=== PATIENT | male | born 1970 | race Caucasian/White ===

== ENCOUNTER → 2019-09-14 | Outpatient (CLI) | payer BC ==
--- NOTE | 2019-09-14 10:00 | ECHOF ---
Referral Reason:R06.00 Dyspnea, unspecified MEASUREMENTS -------- HEIGHT: 172.7 cm WEIGHT: 97.5 kg BP: RVIDd: 3.9 cm (< 3.3) IVSd: 1.7 cm (0.6 - 1.1) LVIDd: 4.0 cm (3.9 - 5.3) LVPWd: 1.7 cm (0.6 - 1.1) IVSs: 2.5 cm LVIDs: 2.4 cm LVPWs: 2.3 cm LAESV Index (A-L): 26.40 ml/m Ao Diam: 3.4 cm (2.0 - 3.7) AV Cusp: 2.4 cm (1.5 - 2.6) MV EXCURSION: 15.488 mm (> 18.000) MV EF SLOPE: 52 mm/s (70 - 150) EPSS: 0.1 cm MV E Juan Jose: 0.76 m/s MV DecT: 217 ms MV A Juan Jose: 0.66 m/s MV E/A Ratio: 1.14 RAP: 5.00 mmHg RVSP: 35.33 mmHg FINDINGS -------- Sinus rhythm. This was a technically adequate study. The left ventricular size is normal. There is moderate concentric left ventricular hypertrophy. O verall left ventricular systolic function is normal with, an EF between 60 - 65 %. The diastolic fi lling pattern is normal for the age of the patient 12.02. The right ventricle is moderately enlarged. Normal LA size by volume 22+/-6 ml/m2. The right atrium is mildly enlarged. Interatrial and interventricular septum intact. The aortic valve is trileaflet and appears structurally normal. There is mild aortic valve sclerosi s. There is no evidence of aortic regurgitation. There is no evidence of aortic stenosis. There is trace mitral regurgitation. Mild tricuspid regurgitation present. There is borderline pulmonary hypertension. The right ventr icular systolic pressure, as measured by Doppler, is 35.33mmHg. There is no pulmonic regurgitation present. The aortic root size is normal. IVC Not well visulized. There is no pericardial effusion. CONCLUSIONS -------- 1. Sinus rhythm. 2. This was a technically adequate study. 3. The left ventricular size is normal. 4. There is moderate concentric left ventricular hypertrophy. 5. Overall left ventricular systolic function is normal with, an EF between 60 - 65 %. 6. The diastolic filling pattern is normal for the age of the patient 12.02 7. The right ventricle is moderately enlarged. 8. Normal LA size by volume 22+/-6 ml/m2. 9. The right atrium is mildly enlarged. 10. Interatrial and interventricular septum intact. 11. The aortic valve is trileaflet and appears structurally normal. 12. There is mild aortic valve sclerosis. 13. There is no evidence of aortic regurgitation. 14. There is no evidence of aortic stenosis. 15. There is trace mitral regurgitation. 16. Mild tricuspid regurgitation present. 17. There is borderline pulmonary hypertension. 18. The right ventricular systolic pressure, as measured by Doppler, is 35.33mmHg. 19. There is no pulmonic regurgitation present. 20. The aortic root size is normal. 21. IVC Not well visulized. 22. There is no pericardial effusion. BANDER OPERATOR: Alysha Manzano RDCS
--- NOTE | 2019-09-14 10:03 | P.STRESS ---
- Stress Test Note Stress Test Results/Findings: Exam Performed: stress test Exam Date: 09/14/19 Reason for Exam: DYSPNEA Height: 5 ft 8 in Weight: 100 kg Protocol: MARC Stage: 2 Duration of Exercise: 6:00 Resting Heart Rate: 78 Resting Blood Pressure: 149/103 Maximum Achieved Heart Rate: 153 Maximum Achieved Blood Pressure: 216/88 85% PMHR: 146 100% PMHR: 172 METS: 7.1 Technologist Comment: Stress Test Results/Findings: This is a 49-year-old gentleman with history of hypertension, COPD, being evaluated for shortness of breath. Stress data: Baseline EKG showed sinus rhythm with normal OR interval and QRS duration. Blood pressure at rest is 149/103 with pulse rate of 78. Patient walked on a Marc protocol for 6 minutes achieving a maximum heart rate of 153 with a blood pressure of 216/88. EKGs taken during and after exercise did not reveal any significant changes from baseline. Final impression: #1. Limited exercise capacity #2 negative stress test. #3. Patient did not experience any chest pain . #4. No arrhythmias detected.
== END | disposition home or self-care (01) ==
LOC: RADECHMAIN 08:10
PROVIDERS: ATTEND Family Medicine
DX: I07.1 Rheumatic tricuspid insufficiency (principal); I27.20 Pulmonary hypertension, unspecified; R06.00 Dyspnea, unspecified
CPT/HCPCS: 93017; 93306

== ENCOUNTER → 2019-12-25 | Outpatient (CLI) | payer BC ==
--- NOTE | 2019-12-25 13:14 | US ---
EXAMINATION TYPE: US prostate transrectal DATE OF EXAM: 12/25/2019 COMPARISON: NONE CLINICAL HISTORY: R97.20 Raised PSA. Elevated PSA, pt also states urinary frequency at night, and dif ficulty emptying bladder This examination was performed using the transrectal probe. EXAM MEASUREMENTS: Gland Size: 4.8 x 2.9 x 4.1 cm Volume: 29.7 ml Predicted PSA: 3.6 Actual PSA (if available):7.6 Predicted PSA wnl (much lower than actual PSA), no peripheral lesion could be appreciated Seminal vesicles are unremarkable initially. Prostate gland measures upper limits of normal in size w ith some central calcifications. No suspicious hypoechoic nodules identified. IMPRESSION: As above. Actual PSA out of proportion to predicted PSA. Advise urology referral. Consid er ultrasound guided random sampling or MRI evaluation. Predicted PSA = volume x 0.12 ng/ml Calculated Volume = 0.5236 x L x W x H
== END | disposition home or self-care (01) ==
LOC: RADUSWWP 12:34
DX: R97.20 Elevated prostate specific antigen [PSA] (principal)
CPT/HCPCS: 76872

== ENCOUNTER 2020-02-21 13:22 | Emergency (ER) | payer BC ==
[2020-02-21 13:26] VITALS: TEMP 98.1
[2020-02-21] MEDS ORDERED: LIDOCAINE 1% INJ 10MG/ML (20 ML MDV) SQ ONE (13:31)
--- NOTE | 2020-02-21 14:27 | ED ---
Wound/Laceration HPI - General Chief Complaint: Wound/Laceration Stated Complaint: leg lac Time Seen by Provider: 02/21/20 13:31 Source: patient Mode of arrival: ambulatory Limitations: no limitations - History of Present Illness Initial Comments: Patient is a 41-year-old male presenting to the emergency department with chief complaint of laceration. Patient states that he accidentally lacerated the lateral aspect of his right leg using a knife. States his tetanus is up-to-date. No blood thinners. States the pain is minimal. This occurred about one hour prior to arrival. No alleviating or aggravating factors. No numbness or tingling. - Related Data Allergies Allergy/AdvReac Type Severity Reaction Status Date / Time No Known Allergies Allergy Verified 02/21/20 13:26 Review of Systems ROS Statement: Those systems with pertinent positive or pertinent negative responses have been documented in the HPI. ROS Other: All systems not noted in ROS Statement are negative. Past Medical History Past Medical History: No Reported History History of Any Multi-Drug Resistant Organisms: None Reported Past Surgical History: Orthopedic Surgery Additional Past Surgical History / Comment(s): rt shoulder Past Psychological History: No Psychological Hx Reported Smoking Status: Former smoker Past Alcohol Use History: Occasional Past Drug Use History: None Reported General Exam Limitations: no limitations General appearance: alert, in no apparent distress Head exam: Present: atraumatic, normocephalic, normal inspection Eye exam: Present: normal appearance, PERRL, EOMI Pupils: Present: normal accommodation ENT exam: Present: normal exam, normal oropharynx, mucous membranes moist Neck exam: Present: normal inspection, full ROM Respiratory exam: Present: normal lung sounds bilaterally. Absent: respiratory distress, wheezes Cardiovascular Exam: Present: regular rate, normal rhythm, normal heart sounds Extremities exam: Present: full ROM, normal capillary refill, other (+2 ulnar and radial pulses bilateral. +2 dorsalis pedis and posterior tibials bilateral.). Absent: normal inspection (5 similar laceration on the lateral aspect of her right lower extremity.), tenderness, pedal edema, joint swelling, calf tenderness Back exam: Present: normal inspection, full ROM. Absent: tenderness, CVA tenderness (R), CVA tenderness (L) Neurological exam: Present: alert, oriented X3, normal gait Psychiatric exam: Present: normal affect, normal mood Skin exam: Present: warm, dry, intact, normal color Course Vital Signs 02/21/20 02/21/20 13:23 14:32 Temperature 98.1 F Pulse Rate 83 86 Respiratory 18 16 Rate Blood Pressure 114/77 132/76 O2 Sat by Pulse 98 99 Oximetry Procedures - Laceration Laceration #1 Consent Obtained: verbal consent Indication: laceration Site: lower extremity (Right leg) Size (cm): 5 Description: linear Depth: simple, single layer Sedation/Analgesia: none Anesthetic Used: lidocaine 1% Anesthesia Technique: local infiltration Amount (mls): 5 Pre-repair: irrigated extensively, deep structures intact Type of Sutures: nylon Size of Sutures: 4-0 Number of Sutures: 6 Technique: simple, interrupted Patient Tolerated Procedure: well, no complications Medical Decision Making - Medical Decision Making Patient is a 41-year-old male presents emergency Department with chief complaint of laceration. Laceration site was thoroughly irrigated and repaired with 5 sutures. Patient tolerate the procedure well. His tetanus is up-to-date. Return parameters discussed with patient was understanding and agreeable. Case discussed with physician. Disposition Clinical Impression: Laceration Disposition: HOME SELF-CARE Condition: Stable Instructions (If sedation given, give patient instructions): Care For Your Stitches (DC), Laceration (DC) Additional Instructions: Please return to the emergency room in 12-14 days to have sutures removed. Please watch for any signs of infection which may include increased pain, swelling, redness, fever or chills. Please return to emergency room for any signs of infection do occur. Please use clean soap and water over the area to prevent scabbing over your stitches. Please leave wound covered for the first 24-48 hours and then leave wound open to air. Please return to the emergency room for any other concerns. Is patient prescribed a controlled substance at d/c from ED?: No Referrals: Xavier Madden MD [Primary Care Provider] - 1-2 days Time of Disposition: 14:27
[2020-02-21 14:33] VITALS: BP 132/76; PULSE 86; RESP 16
== END 2020-02-21 14:35 | disposition home or self-care (01) ==
LOC: EC 13:22
DX: S81.811A Laceration without foreign body, right lower leg, initial encounter (principal); Z87.891 Personal history of nicotine dependence; W26.0XXA Contact with knife, initial encounter
CPT/HCPCS: 99282; 12002; J2001

== ENCOUNTER → 2022-08-07 | Outpatient (CLI) | payer OTHER ==
[2022-08-07 18:43] LABS: HCT 45.4 % (39.6-50.0); HGB 14.4 g/dL (13.0-17.0); MCH 29.4 pg (27.0-32.0); MCHC 31.7 g/dL (32.0-37.0); MCV 92.7 fL (80.0-97.0); Mean Platelet Volume 9.8 fL (9.5-12.2); NRBC Per 100 WBC 0 /100 WBCS (0.0-0.0); Platelet Count 369 X 10*3/uL (140-440); RDW 13.5 % (11.5-14.5); WBC 7.54 X 10*3/uL (4.50-10.00)
[2022-08-07 19:03] LABS: ALT 44 U/L (10-49); AST 23 U/L (14-35); African American GFR (CKD) 121.2 (60.0-200.0); Albumin 4.4 g/dL (3.8-4.9); Albumin/Globulin Ratio 1.73 (1.60-3.17); Alkaline Phosphatase 124 U/L (41-126); BUN/Creat Ratio 23.86 Ratio (12.00-20.00); Blood Urea Nitrogen 18.9 mg/dL (9.0-27.0); Calcium 9.3 mg/dL (8.7-10.3); Carbon Dioxide 25.9 mmol/L (20.0-27.5); Chloride 106 mmol/L (96-109); Chol/HDL Ratio 4.54 Ratio; Globulin 2.6 g/dL (1.6-3.3); Glucose 125 mg/dL (70-110); LDL Cholesterol,Calculated 104.5 mg/dL (0.0-131.0); Non-African American GFR(CKD) 104.6 (60.0-200.0); Potassium 4.4 mmol/L (3.5-5.5); Sodium 140 mmol/L (135-145); VLDL Calculation 19.52 mg/dL (5.00-40.00)
== END | disposition home or self-care (01) ==
LOC: LABWHC1 08:42
PROVIDERS: ATTEND Family Medicine
DX: Z00.01 Encounter for general adult medical examination with abnormal findings (principal)
CPT/HCPCS: 36415; 80053; 80061; 84153; 85027

== ENCOUNTER 2023-12-22 18:05 | Inpatient (IN) | payer OTHER ==
[~2023-12-22 18:05] MED LIST: MORPHINE SULFATE 4 MG/ML SYRINGE ONE
[2023-12-22] MEDS ORDERED: HEPARIN SOD,PORK IN 0.45% NACL 250 ML IV ONE (18:22)
[2023-12-22] MEDS ORDERED: HEPARIN SODIUM 1,000 UN/ML (10ML VL) ONE (18:22)
[2023-12-22] MEDS ORDERED: amLODIPine 5 MG TAB ONE (21:31)
[2023-12-22] MEDS ORDERED: ATORVASTATIN 40 MG TAB ONE (21:31)
[2023-12-22] MEDS ORDERED: MORPHINE SULFATE 4 MG/ML SYRINGE ONE (21:32)
[2023-12-22] MEDS ORDERED: NITROGLYCERIN OINT 1 INCH/GM PACKET TOPICAL ONE (21:32)
[2023-12-22] MEDS ORDERED: SODIUM CHLORIDE 0.9% 1,000 ML BAG ONE (23:59)
[2023-12-23] MEDS ORDERED: HEPARIN SODIUM 1,000 UN/ML (10ML VL) ONE ×2 (01:20→12:07)
[2023-12-23] MEDS ORDERED: MORPHINE SULFATE 4 MG/ML SYRINGE ONE ×2 (01:22→10:22)
[2023-12-23] MEDS ORDERED: NITROGLYCERIN OINT 1 INCH/GM PACKET TOPICAL ONE (05:40)
[2023-12-23] MEDS ORDERED: amLODIPine 10 MG TAB ONE (07:44)
[2023-12-23] MEDS ORDERED: ATORVASTATIN 40 MG TAB ONE (07:53)
[2023-12-23] MEDS ORDERED: ATORVASTATIN 80 MG TAB ONE (10:22)
[2023-12-23] MEDS ORDERED: ASPIRIN 325 MG TAB ONE (10:22)
[2023-12-23] MEDS ORDERED: fentaNYL (PF) 50 MCG/ML 2 ML AMP ONE (12:07)
[2023-12-23] MEDS ORDERED: VERAPAMIL 2.5 MG/ML 4 ML VIAL ONE (12:10)
[2023-12-23] MEDS ORDERED: LIDOCAINE 1% INJ 10MG/ML (20 ML MDV) ONE (12:10)
[2023-12-23] MEDS ORDERED: SODIUM CHLORIDE 0.9% 1,000 ML BAG ONE (12:10)
[2023-12-23] MEDS ORDERED: HEPARIN SODIUM,PORCINE 10,000 UNIT/ML 1 ML VIAL ONE (12:10)
[2023-12-23] MEDS ORDERED: HEPARIN SODIUM,PORCINE 5,000 UNIT/ML 1 ML VIAL ONE (12:10)
[2023-12-23] MEDS ORDERED: SODIUM CHLORIDE 0.9% 250 ML BAG ONE (12:10)
[2023-12-23] MEDS ORDERED: PRASUGREL 10 MG TAB ONE ×2 (12:40→12:41)
[2023-12-23] MEDS: IOPAMIDOL-370 200ML BTL INJ ONE (13:15)
[2023-12-23] MEDS ORDERED: MAG HYDROX/AL HYDROX/SIMETH 30 ML CUP ONE (16:25)
[2023-12-23] MEDS ORDERED: METOPROLOL TARTRATE 25 MG TAB ONE (19:59)
[2023-12-24] MEDS ORDERED: METOPROLOL TARTRATE 25 MG TAB ONE (08:39)
[2023-12-24] MEDS ORDERED: ATORVASTATIN 40 MG TAB ONE (08:40)
--- NOTE | 2024-02-01 14:25 | XR ---
Site ID [facility] Patient Luis Temple L ID [id number] Age/Gender: 53Y, M Order # N/A Procedure XR chest 2V Date 12/22/2023 2:59:00 PM EXAMINATION TYPE: Chest X-ray 2 Views DATE OF EXAM: 01/08/2024 7:23 PM COMPARISON: Chest radiographs from 05/19/2010, CT chest 11/27/2014 TECHNIQUE: Chest X-ray 2 Views Frontal and lateral views of the chest. Delayed interpretation due to institution cyber attack. CLINICAL INDICATION: Male, 53 year old with history of chest pain; FINDINGS: Lungs/Pleura: There is no evidence of pleural effusion, focal consolidation, or pneumothorax. Pulmonary vascularity: Unremarkable. Heart/mediastinum: Cardiomediastinal silhouette is unremarkable. Musculoskeletal: No acute osseous pathology. IMPRESSION: No acute cardiopulmonary disease/process.
== END 2023-12-24 12:47 | disposition home or self-care (01) | DRG 282 ==
LOC: 3SCARD 18:05
PROVIDERS: ADMIT Hospitalist; ATTEND Hospitalist
PROC: 4A023N7 Measurement of Cardiac Sampling and Pressure, Left Heart, Percutaneous Approach (ICD-10-PCS; principal; 2023-12-23 12:14)
PROC: B2111ZZ Fluoroscopy of Multiple Coronary Arteries using Low Osmolar Contrast (ICD-10-PCS; 2023-12-23 12:14)
DX: I21.4 Non-ST elevation (NSTEMI) myocardial infarction (principal); I10 Essential (primary) hypertension; E78.5 Hyperlipidemia, unspecified; J45.909 Unspecified asthma, uncomplicated
CPT/HCPCS: 71046; 80053; 83735; 83880; 84100; 84484; 85025; 85379; 85610; 85730; 92978; 93005; 93306; 93458; 93799; 96374; 99285